=== PATIENT | male | born 1990 | race Caucasian/White ===

== ENCOUNTER 2017-07-25 12:26 | Emergency (ER) | payer SELFPAY ==
[~2017-07-25 12:26] MED LIST: AMOX250 PO; AMOX500 PO; CYCL10 PO; HYDACE5 PO; INDO25 PO; NAPR500 PO; PSEU120ER PO; RXHYD5325 PO
== END 2017-07-25 12:57 | disposition left against medical advice (07) ==
LOC: ER 12:26
DX: Z53.21 Procedure and treatment not carried out due to patient leaving prior to being seen by health care provider (principal)

== ENCOUNTER 2017-08-20 19:51 | Emergency (ER) | payer OTHER ==
[~2017-08-20] VITALS: Ht 177.8 cm; Wt 81.7 kg
[2017-08-20] MEDS ORDERED: Norco 5-325 Ta1 EACH PO (21:48)
[2017-08-20] MEDS ORDERED: Vibramycin100 MG PO (21:48)
[2017-08-20] MEDS ORDERED: IBUP800 PO (21:48)
[2017-08-20 22:27] LABS: Source, Urine Clean Catch
[2017-08-20 22:32] LABS: Specimen Source URINE
[2017-08-20 22:39] LABS: Bilirubin, Urine Neg (Neg); Blood, Urine 1+ (Neg); Glucose Qualitative, Urine Neg (Neg); Ketones, Urine 1+ (Neg); Leukocyte Esterase, Urine 2+ (Neg); Nitrite, Urine Neg (Neg); Protein, Urine 1+ (Neg); Specific Gravity, Urine 1.025 (1.003-1.022); Urobilinogen, Urine 1+ (Normal)
[2017-08-20 22:40] LABS: Amorphous Light (0-Heavy); Appearance, Urine Hazy (Clear); Bacteria Few /hpf; Color, Urine Amber (P-Yellow); Mucus Light (0-Heavy); Squamous Epithelial Cells Not Seen /hpf (Few); White Blood Cells, Urine 50-100 /hpf (0-5)
[2017-08-22 05:54] LABS: Source Urine
== END 2017-08-20 22:31 | disposition home or self-care (01) ==
LOC: ER 19:51
PROVIDERS: Emergency Medicine
DX: N34.2 Other urethritis (principal); N45.1 Epididymitis; F17.210 Nicotine dependence, cigarettes, uncomplicated
CPT/HCPCS: 76870; 81001; 87086; 87491; 87591; 96372; 96374; 96375; 99284; J0696; J1885; J2405; J3010

== ENCOUNTER 2023-03-03 08:32 | Emergency (ER) | payer OTHER ==
[~2023-03-03] VITALS: Ht 177.8 cm; Wt 102.1 kg
[~2023-03-03 08:32] MED LIST changes: +IBUP800 PO; +METH40 PO; +Norco 5-325 Ta1 EACH PO; +OLAN5; +ONDA4ODT MM; +TRAZ100 PO; +Vibramycin100 MG PO
[2023-03-03 08:51] VITALS: BP 135/82
[2023-03-03] MEDS ORDERED: METH40 PO (08:53)
== END 2023-03-03 09:42 | disposition home or self-care (01) ==
LOC: ER 08:32
DX: R05.9 Cough, unspecified (principal); F17.210 Nicotine dependence, cigarettes, uncomplicated; Z20.822 Contact with and (suspected) exposure to COVID-19; Z79.899 Other long term (current) drug therapy
CPT/HCPCS: 99284

== ENCOUNTER 2023-05-31 22:51 | Emergency (ER) | payer OTHER ==
[~2023-05-31] VITALS: Ht 177.8 cm; Wt 102.1 kg
[2023-05-31 23:25] VITALS: BP 135/80
== END 2023-06-01 01:44 | disposition home or self-care (01) ==
LOC: ER 22:51
DX: S61.412A Laceration without foreign body of left hand, initial encounter (principal); S56.124A Laceration of flexor muscle, fascia and tendon of left middle finger at forearm level, initial encounter; S56.126A Laceration of flexor muscle, fascia and tendon of left ring finger at forearm level, initial encounter; Z79.899 Other long term (current) drug therapy; F17.210 Nicotine dependence, cigarettes, uncomplicated; W26.0XXA Contact with knife, initial encounter
CPT/HCPCS: 12002; 73130; 90471; 90714; 99283-25; J1885

== ENCOUNTER 2023-06-13 09:10 | Day surgery (SDC) | payer OTHER ==
[~2023-06-13] VITALS: Ht 177.8 cm; Wt 101.1 kg
[2023-06-13] VITALS (16 sets, daily range): BP systolic 116–145; BP diastolic 71–108
[2023-06-13] MEDS ORDERED: CeFAZolin Sodium 2,000 MG in NS 50 ML IV SCH (09:50)
[2023-06-13] MEDS ORDERED: Lactated Ringer's 1,000 ML IV SCH (09:50)
[2023-06-13] MEDS ORDERED: METHADONE HCL PO (10:19)
[2023-06-13 11:00] LABS: BASOPHILS ABSOLUTE AUTO 0.02 K/mm3 (0.00-0.23); BASOPHILS PERCENT AUTO 0 % (0-2); EOSINOPHILS ABSOLUTE AUTO 0.21 K/mm3 (0.00-0.68); EOSINOPHILS PERCENT AUTO 4 % (0-6); Hematocrit 39.6 % (37.0-53.0); Hemoglobin 13.6 g/dL (13.5-17.5); IMMATURE GRAN ABSOLUTE AUTO 0.01 K/mm3 (0.00-0.10); IMMATURE GRAN PERCENT AUTO 0 % (0-1); LYMPHOCYTES ABSOLUTE AUTO 2.04 K/mm3 (0.84-5.20); LYMPHOCYTES PERCENT AUTO 35 % (21-46); MONOCYTES ABSOLUTE AUTO 0.33 K/mm3 (0.16-1.47); MONOCYTES PERCENT AUTO 6 % (4-13); Mean Corpuscular HGB 30.3 pg (26.0-34.0); Mean Corpuscular HGB Conc 34.3 g/dL (31.5-36.5); Mean Corpuscular Volume 88 fL (80-100); NEUTROPHILS ABSOLUTE AUTO 3.18 K/mm3 (1.96-9.15); NEUTROPHILS PERCENT AUTO 55 % (41-73); Platelet Count 191 K/mm3 (150-400); RDW Coefficient Variation 11.9 % (11.7-14.2); RDW Standard Deviation 37.8 fL (35.1-46.3); Red Blood Cell Count 4.49 M/mm3 (4.30-5.90); White Blood Cell Count 5.79 K/mm3 (4.00-11.30)
[2023-06-13] MEDS ORDERED: Ketamine HCL 10 MG/ML 5ML SYR ONE (11:00)
[2023-06-13] MEDS ORDERED: Midazolam HCl 1MG / ML 2ML Vial ONE (11:01)
[2023-06-13] MEDS ORDERED: FentaNYL Citrate 50 MCG/ML 2 ML Injection ONE (11:01)
--- NOTE | 2023-06-13 11:27 | NUR ---
PT INTO [facility]. Ambulatory in Day Surgery. History, Chart, Medications and Allergies reviewed before start of procedure.Lungs clear T/O to Auscultation. Patient confirms NPO status and agrees with scheduled surgery. Patient States Post-Procedure ride home has been arranged. Time out for nerve block procedure at 1125. Procedure finished at 1126. VSS. Pt transfered to OR.
[2023-06-13] MEDS ORDERED: propofoL 20 ML IV ONE (11:28)
[2023-06-13] MEDS ORDERED: propofoL 40 ML IV ONE (11:29)
[2023-06-13 11:31] LABS: Albumin, Blood 3.6 g/dL (3.4-5.0); Albumin/Globulin Ratio 0.9 (0.8-1.8); Bilirubin, Total 0.4 mg/dL (0.1-1.0); Bun/Creatinine Ratio 17.5 (12.0-20.0); Calcium, Blood 9.1 mg/dL (8.5-10.1); Creatinine, Blood 0.8 mg/dL (0.60-1.20); Globulin, Blood 4.1 g/dL (2.2-4.0); Potassium, Blood 4.6 mmol/L (3.5-5.5); Total Protein, Blood 7.7 g/dL (6.4-8.2)
[2023-06-13] MEDS ORDERED: Glycopyrrolate 0.2 MG/ML 5ML VIAL ONE (11:47)
--- NOTE | 2023-06-13 12:09 | NUR ---
06/13/23 1209 Terri Araujo BRACHIAL PLEXUS NERVE BLOCK COMPLETED BY DR. MCLEOD IN DAY SURGERY BEFORE GOING TO THE OR.
[2023-06-13] MEDS ORDERED: HYDROcodone 5-APAP 325 TAB PO ONE (13:50)
--- NOTE | 2023-06-13 14:00 | NUR ---
INTO STEP VIA [facility]. PT IS A&OX4. PT DENIES PAIN. ALESSANDRA WRAP TO LEFT HAND/ARM C/D/I. GOOD CAPILLARY REFILL. PT HAS GROSS MOTOR MOVEMENT FROM LEFT SHOULDER DOWN-OTHERWISE, LEFT ARM/FINGERS REMAIN NUMB. VS WDL. PT TOLERATING PO FOOD AND FLUIDS WITHOUT DIFFICULTY.
--- NOTE | 2023-06-13 15:05 | NUR ---
Patient up to Ambulate independently. Gait steady. VSS AND CONSISTENT WITH PT BASELINE. PT HAS NO COMPLAINTS AND VERBALIZES READINESS TO GO HOME. Discharge instructions reviewed with patient. Patient verbalizes understanding. Copy given to patient to take home. Dressing to procedure site clean, dry, intact with no visible drainage, swelling, erythema or bruising noted. Patient States Post-Procedure ride home has been arranged. Discharged via wheelchair to private car for ride home. PT BELONGINGS RETURNED TO PT.
== END 2023-06-13 15:07 | disposition home or self-care (01) ==
LOC: ORSCMMR 09:10
PROVIDERS: Orthopaedic Surgery
PROC: 0LQ80ZZ Repair Left Hand Tendon, Open Approach (ICD-10-PCS; principal; 2023-06-13 11:30)
DX: S66.123A Laceration of flexor muscle, fascia and tendon of left middle finger at wrist and hand level, initial encounter (principal); S66.125A Laceration of flexor muscle, fascia and tendon of left ring finger at wrist and hand level, initial encounter; S64.495A Injury of digital nerve of left ring finger, initial encounter; S64.493A Injury of digital nerve of left middle finger, initial encounter; W26.0XXA Contact with knife, initial encounter; F17.210 Nicotine dependence, cigarettes, uncomplicated; B19.20 Unspecified viral hepatitis C without hepatic coma; Z79.899 Other long term (current) drug therapy; Z68.32 Body mass index [BMI] 32.0-32.9, adult
CPT/HCPCS: 80053; 85025; A9270; J0690; J2250; J2704; J3010; J7120